=== PATIENT | male | born 1995 | race Caucasian/White ===

== ENCOUNTER 2020-02-05 02:47 | Emergency (ER) | payer OTHER, SELFPAY ==
[~2020-02-05] VITALS: Ht 167.6 cm; Wt 86.2 kg
[2020-02-05 02:49] VITALS: Ht 167.6 cm; Wt 86.2 kg
[2020-02-05 05:29] VITALS: BP 132/68
== END 2020-02-05 05:30 | disposition home or self-care (01) ==
LOC: ED 02:47
DX: J40 Bronchitis, not specified as acute or chronic (principal); Z90.89 Acquired absence of other organs